=== PATIENT | female | born 1950 | race Caucasian/White ===

== ENCOUNTER → 2019-11-29 14:17 | Outpatient (CLI) | payer OTHER, SELFPAY ==
[2019-11-30 23:34] LABS: COVID19 Sendout Not Detected (Not Detect)
== END ==
PROVIDERS: Visit Provider Physician Assistant
DX: Z01.812 Encounter for preprocedural laboratory examination (principal)
CPT/HCPCS: 87635

== ENCOUNTER 2019-12-02 11:30 | Day surgery (SDC) | payer OTHER, SELFPAY ==
[2019-12-01 13:49] VITALS: BMI 43.7
[2019-12-02] VITALS (16 sets, daily range): BP systolic 101–119; BP diastolic 55–73; PULSE 62–79; RESP 12–20; TEMP 36.2–36.7; O2SAT 90–97; BMI 43.7
--- NOTE | 2019-12-02 | DI.RAD.S_ITS ---
PROCEDURE: XR KNEE LT 1TO2V INDICATIONS: LEFT TOTAL KNEE TECHNIQUE: 2 view(s) of the knee acquired. COMPARISON: [facility], , XR KNEE LT 1TO2V, 12/02/2019, 17:20. FINDINGS: Bones: Patient is status post knee joint arthroplasty. Hardware components are in expected positions. Visualized bony structures are intact. Soft tissues: Overlying postoperative changes are noted. IMPRESSION: Right knee postsurgical changes as above. Dictated by: Heena Ji M.D. on 12/02/2019 at 18:35 Approved by: Heena Ji M.D. on 12/02/2019 at 18:36
--- NOTE | 2019-12-02 | DI.RAD.S_ITS ---
PROCEDURE: XR KNEE LT 1TO2V INDICATIONS: INTRA OP FOREIGN BODY TECHNIQUE: 3 views of the knee were acquired. COMPARISON: None. FINDINGS: Intraoperative fluoroscopic image demonstrates partial visualization of knee arthroplasty. Small curvilinear density is noted along the superior aspect of the patella compartment of the prosthesis seen only in one view. IMPRESSION: Intraoperative fluoroscopy noting curvilinear density along the superior patellar prosthesis. Recommend clinical correlation. Dictated by: Heena Ji M.D. on 12/02/2019 at 17:58 Approved by: Heena Ji M.D. on 12/02/2019 at 17:59
[2019-12-02] MEDS: ACETAMINOPHEN 325 MG TABLET 975 MG PO (12:43)
[2019-12-02] MEDS: LACTATED RINGERS 1,000 ML 42 ML IV ×2 (12:43→15:55)
[2019-12-02] MEDS: PREGABALIN 75 MG CAPSULE PO (12:45)
[2019-12-02] MEDS: VANCOMYCIN 1,000 MG/200 ML PIGGYBACK 200 MG IV (13:09)
--- NOTE | 2019-12-02 14:00 | P.OP_ITS ---
Operative Date/Time/Diagnoses Date of procedure: 12/02/19 Time of procedure: 14:18 Pre-op diagnosis: Left knee OA Post-op diagnosis: same Procedure & Clinicians Procedure: Left total knee arthroplasty Same procedure as scheduled: Yes Indications: The patient has had progressively worsening left knee pain with radiographic changes consistent with arthritis. Non-operative management has failed and the patient has requested total knee replacement. The risks, benefits and alternatives to surgery were discussed with the patient prior to proceeding. Risks discussed included, but were not limited to, failure to relieve pain, stiffness, infection, nerve damage, deep venous thrombosis, pulmonary embolism, stroke, coma, heart attack, permanent paralysis and , as well as the potential need for eventual revision of the prosthetic. Surgeon: Judi Wagner Trimming Assembler: Adela Huggins Anesthesia Type: General and Spinal Operative Notes Findings: Severe left knee osteoarthritis, adequate stability Closure Type: primary Specimen(s): none sent Prosthetic devices, grafts, tissues, transplants, or devices: Wagner and Nephew Odette BCS 2 femur 6, tibia 4, +9 poly, 32 by 7-1/2 mm patella Applied: drain(s) Estimated Blood Loss (mL): 250 Blood products transfused: none Tourniquet time (min): 100 Procedure in detail: The patient was seen in the pre-operative area, where the patient identified the left knee as the operative site and this was marked with my initials. The patient received pre-operative antibiotics, and was taken to the operating room and placed on the operative table in the supine position. After satisfactory anesthesia, a multimedia developer out was performed. The left leg was encircled with a tourniquet about the proximal thigh, and the leg was prepared from the toes to the tourniquet with ChloroPrep in the usual fashion and draped through sterile drapes. The leg was elevated and exsanguinated with Eschmark bandage and the tourniquet inflated to [250] mmHg pressure. The knee was approached through an approximately 18 cm incision centered over the patella and carried into the knee through a medial parapatellar arthrotomy. A portion of the medial and lateral meniscus was resected. Soft tissue was carefully mobilized around the patella the patella was measured with a caliper. Bone was resected from the patella and the patellar height was reconstituted with up an appropriate sized patellar component. A cover was then placed on the patella. A small amount of additional medial and lateral meniscus was resected. The distal femur was cut at 5?. A [+2] cut was used. It looked like an appropriate distal femoral cut and the cut was made without difficulty. An extramedullary guide was used for the tibial cut. 10 mm was resected off the least affected side.The tibia was prepared. The rotation was assessed. The patient was placed in extension residual medial and lateral meniscus as well as any residual bone was carefully resected. 2 mm additional tibia was resected. Hemostasis was achieved especially posteriorly. Additional local was injected into the posterior capsule. The extension gap was assessed and additional releases for gap balancing were performed as necessary. It was checked with the gap administrative judge. The femoral component was trial was placed and the notch was finished. The rotation was assessed and the appropriate size femoral guide was placed on the distal femur and finishing cuts were made. There is no evidence of notching. The anterior, posterior and chamfer cuts were then made. The posterior osteophytes and soft tissues were then removed. The posterior capsule was injected with part of a mixture of 60 ml 0.25% Marcaine mixed with 20 ml Exparel for post operative pain control. The remainder of this mixture was injected into the capsule and subcutaneous tissues during cement curing.l tibial and femoral components were then placed and the knee placed through a range of motion. Range of motion was [0-130], with good stability throughout the range. The trials were then removed, and the tibia was finished. The bone was prepared with pulsatile lavage, and dried with a sponge. Cement was applied and the final prosthetics placed. Excess cement was removed during and after cement curing. A brief Betadine soak was performed. After confirming there was no extruded cement posteriorly, the final tibial insert was placed. The knee was copiously irrigated and the tourniquet deflated. Hemostasis was obtained with the Bovie cautery. A drain was placed and brought out superolaterally. The capsule was closed with interrupted nonabsorbable suture. The subcutaneous layer was closed with barbed sutures, and the skin with a running 3-0 V-Lock suture and skin neli. An Aquacel Ag dressing was applied and the patient was taken to recovery having tolerated the procedure well. Complications: none Post-operative Condition: stable Disposition: Acute Care Plan for aftercare: The patient will be maintained on a standard total knee replacement protocol with weight bearing as tolerated. The patient will receive aspirin and sequential compression devices for DVT prophylaxis. The patient will be discharged home when safe for the home environment.
--- NOTE | 2019-12-02 14:00 | PM.PREOP ---
Pre-operative Note COVID-19 COVID-19 status: Negative Interval Note History & Physical reviewed/Exam performed by Physician: Yes Changes to H&P: No
[2019-12-02] MEDS: CLINDAMYCIN 900 MG/50 ML PIGGYBACK 50 MG IV (14:20)
--- NOTE | 2019-12-02 15:02 | SUR.OPER ---
Supine on padded OR bed. Pillow under head, arms secured on padded armboards <90 degree abduction. Safety belt across torso. Non-operative leg secured with tape over blanket over lower leg. Operative leg secured in DeMayo positioner. Foam padded brace at thigh of operative leg.
[2019-12-02] MEDS: BUPIVACAINE LIPOSOME 266 MG/20 ML VIAL INJ (15:10)
[2019-12-02] MEDS: BUPIVACAINE 0.25% W/ EPI 30 ML VIAL 60 ML INJ (15:10)
[2019-12-02] MEDS: TRANEXAMIC ACID 1,000 MG VIAL 1000 MG INJ (15:11)
[2019-12-02] MEDS: SODIUM CHLORIDE IRRIG SOLUTION 250 ML, POVIDONE-IODINE SPONGE STICKS 1 APPLIC IRR (15:15)
[2019-12-02] MEDS: LACTATED RINGERS 1,000 ML 100 ML IV (19:47)
[2019-12-02] MEDS: ACETAMINOPHEN 325 MG TABLET 650 MG PO (21:38)
[2019-12-02] MEDS: ASPIRIN EC 81 MG TABLET PO (21:39)
[2019-12-02] MEDS: IBUPROFEN 400 MG TABLET PO (21:39)
[2019-12-02] MEDS: TRAZODONE 100 MG TABLET PO (21:39)
[2019-12-03 00:40] VITALS: BP 104/63; PULSE 74; RESP 18; TEMP 36.3; O2SAT 94
[2019-12-03] MEDS: IBUPROFEN 400 MG TABLET PO ×5 (00:51→17:30)
[2019-12-03] MEDS: VANCOMYCIN 1,000 MG/200 ML PIGGYBACK 200 MG IV (00:51)
[2019-12-03 05:45] VITALS: BP 115/56; PULSE 68; RESP 18; TEMP 36.1; O2SAT 96
[2019-12-03 06:10] LABS: Hematocrit 38.6 % (36-46); Hemoglobin 12.6 g/dL (12.0-16.0)
[2019-12-03 09:00] VITALS: BP 102/52; PULSE 67; RESP 18; TEMP 36.2; O2SAT 95
[2019-12-03] MEDS: CHOLECALCIFEROL (VITAMIN D3) 5,000 UNIT TABLET 5000 UNIT PO (09:58)
[2019-12-03] MEDS: ASPIRIN EC 81 MG TABLET PO (09:58)
[2019-12-03] MEDS: ATORVASTATIN 20 MG TABLET PO (09:58)
[2019-12-03] MEDS: ACETAMINOPHEN 325 MG TABLET 650 MG PO ×2 (09:58→14:02)
[2019-12-03] MEDS: DULOXETINE 30 MG CAPSULE 60 MG PO (09:59)
[2019-12-03] MEDS: DOCUSATE 100 MG CAPSULE PO (09:59)
[2019-12-03] MEDS: OXYCODONE IR 5 MG TABLET PO ×2 (10:02→15:01)
[2019-12-03] MEDS: SODIUM CHLORIDE 0.9% FLUSH 10 ML IV (10:04)
--- NOTE | 2019-12-03 11:37 | PC.NURSE ---
Hemovac drain d/c'd per MD order at approx. 1137. Pt tollerated well. Approx 50mls out serosanguinous drainage.
--- NOTE | 2019-12-03 12:00 | PT.IIE ---
Current Diagnoses Unilateral primary osteoarthritis, right knee (12/02/19) Surgery Performed Operation Date: 12/02/19 13:45 Actual Procedures p Total Knee Arthroplasty(Left) - Judi Wagner MD Surgical History (Last Updated 12/01/19 @ 14:21 by Ivory Baker RN) H/O total hysterectomy with bilateral salpingo-oophorectomy (BSO) (Acute) History of bladder surgery (Acute) History of lumpectomy of right breast (Acute) History of surgery (Acute ~2016) Hx of appendectomy (Acute ~1978) Hx of bariatric surgery (Acute ~2009) Hx of excision of dermoid cyst (Acute) Hx of lithotripsy (Acute) Medical History (Last Updated 12/01/19 @ 14:29 by Ivory Baker RN) Arthritis (Acute) Cholesteatoma (Acute) Decreased sensation (Acute) Depression (Acute) DJD (degenerative joint disease) (Acute) Extra-mammary Paget disease (Acute ~2016) Heartburn (Acute) Hepatitis A (Acute 196) HLD (hyperlipidemia) (Acute) Hypotension (Acute) Kidney stones (Acute) Lactose intolerance (Acute) Sleep apnea (Acute) Physical Therapy Inpatient Evaluation/Re-Eval M1 PT/OT-IP Prior Functional Status Start: 12/03/19 08:43 Freq: NEEDED Status: Active Protocol: Document 12/03/19 11:31 AW (Rec: 12/03/19 12:00 AW [id number]) Medical Review Prior Functional Status Medical History Reviewed Yes Communication WNL Mobility and Gait Pt is modified IND with use of SPC on uneven terrain and 4WW for longer distance ambulation. She tends not to use an assistive device at home. She denies any falls in the past year. Activities of Daily Living and IADL's IND including driving. Social History Household Members spouse Living Arrangements House Number of Floors (Floors) 3 or More Floors Number of Stairs To Enter/Railing? 1 step on to the front porch without railing. Once inside, pt climbs three stairs with left rail ascending to a landing. She then climbs another 13 stairs with L rail to her bedroom level. Pt had not planned to stay on the entry level assistant manager but is willing to consider sleeping in a recliner on the main level if unable to safely navigate stairs. Home Environment High Toilet,Walk in Shower, Built-In Shower Seat Home Equipment Four Wheel Walker,Straight Cane,Hand Held Shower,Supervisor [employer]ating Employment Status Retired Additional Social History Comment Pt is retired from [employer]. She lives with her spouse, Ty, who is retired. He will be available and able to assist at discharge. M2 PT-IP Current Condition Start: 12/03/19 08:43 Freq: NEEDED Status: Active Protocol: Document 12/03/19 11:31 AW (Rec: 12/03/19 12:00 AW [id number]) Physical Therapy Current Condition Current Condition Evaluation Date 12/03/19 Treatment Diagnosis L TKA, difficulty in walking` Onset Date 12/02/19 Weight Bearing Status Weight Bearing Status Weight Bear as Tolerated M3 PT-IP Subjective Start: 12/03/19 08:43 Freq: NEEDED Status: Active Protocol: Document 12/03/19 11:31 AW (Rec: 12/03/19 12:00 AW [id number]) Subjective Physical Therapy Visit Type Type Initial Evaluation Visit Start Time 10:40 Visit Stop Time 11:13 Total Visit Minutes 33 Physical Therapy Visit Comments Patient Comments Pt requests to use the [facility] Patient Goals Pt hopes to return home at discharge with her spouse assisting Therapy Pain Assessment Pain When Pain Assessed During Mobility Pain Present Pain Present Pain Reported Location Left Knee Intensity 3 Pain Management Techniques Apply Cold,Timing of Activity with Medications M4 PT-IP Mobility and Gait Start: 12/03/19 08:43 Freq: NEEDED Status: Active Protocol: Document 12/03/19 11:31 AW (Rec: 12/03/19 12:00 AW [id number]) PT-Bed Mobility Assessment Supine to Sit Supine to Sit Standby Assistance Scooting Scooting to Edge of Bed Standby Assistance PT-Transfer Assessment Sit to and From Stand Sit to and from Stand Contact Guard Assistance,1 Person Assistance,Use of Upper Extremities Equipment Transfer Assistive Device Gait Belt,Front Wheeled Walker Transfers Transfer Destination Chair,Bedside Commode Transfer Technique pt ambulated with FWW Transfer Ability Level of Assist Minimal Assistance,1 Person Assistance Comments Mobility Comments With HOB flat, pt completed supine to sit SBA. She was able to sit EOB with and without UE support. She stood from the bed with cues to use arms on the bed to push off. She transferred to the [facility] CGA using FWW. After voiding, she stood to complete her own pericare and to manage her own briefs. She then ambulated in the hallways, completed stair training, and returned to the room to transfer to the chair min assist x 1 due to poor eccentric control. She was positioned with call light and all needs in reach, fresh ice packs applied. She was left with RN attending. Gait Assessment Gait Gait Assistance Required: Contact Guard Assist Distance (Feet) 75 Able to Maintain Weight Bearing Status Yes During Gait Assistive Devices Assistive Device Gait Belt,Front Wheeled Walker Gait Deviations General Gait Pattern Antalgic,Decreased Stride Length,Decreased Feet Clearance,Flexed Trunk,Step-to Gait Factors Limiting Gait Function Factors Limiting Gait Function Decreased Activity Tolerance, Decreased Sensation,Decreased Strength,Limited Range of Motion,Pain,Poor Balance Comments Gait Comments Pt ambulated [address] to and from the stairs with FWW CGA. She complained of RLE weakness during ambulation but did not require cues for quad activation. She moved slowly but deliberately with good attention to safety. Stair Climbing Assessment Evaluation Level of Assist On Stairs Minimal Assistance,1 Person Assistance Devices Stair Climbing Assistive Devices Left Railing Technique/Endurance Stair Climbing Direction Ascend and Descend Stair Climbing Technique Step to Step Number of Steps Climbed 3 Query Text: Stair Climbing Set # Repetitions (reps) 1 Comments Stair Climbing Comments Pt completed stairs with left hand rail, right SENIOR TREASURY CONSULTANT, min A x 1 due to unsteadiness. Pt will require further stair training including caregiver prior to discharge. PT-Balance Assessment Sitting Balance and Reactions Static Sitting Balance Ability Normal Dynamic Sitting Balance Ability Normal Standing Balance and Reactions Static Standing Balance Ability Fair Dynamic Standing Balance Ability Fair Device Used FWW M5 PT-IP Objective Assessments Start: 12/03/19 08:43 Freq: NEEDED Status: Active Protocol: Document 12/03/19 11:31 AW (Rec: 12/03/19 12:00 AW [id number]) Orientation Orientation/Cognition Level of Alertness Alert Orientation Name,Day of Week,Place, Situation Language Function Ability No Deficits Noted Safety Awareness Understands Safety Issues Memory Description No Deficits Noted Gross Range of Motion Lower Extremity ROM Assessment Left Impaired Strength Lower Extremity Strength Assessment Bilaterally Impaired Hip 3+/5 Knee R 4/5; L 3/5 Ankle 4/5 Coordination Assessment Gross Coordination Gross Coordination WNL Sensation Assessment Sensation Gross Sensation WNL Muscle Tone Muscle Tone WNL Yes M6 PT-IP Treatment Start: 12/03/19 08:43 Freq: NEEDED Status: Active Protocol: Document 12/03/19 11:31 AW (Rec: 12/03/19 12:00 AW [id number]) Physical Therapy Treatment Exercises Exercises Ankle Pumps,Quad Sets Education Education Provided Precautions,Weight Bearing Status,Post-Op Packet,Safety Other Treatments Other Treatment Performed Provided education on role of PT, plan of care, weightbearing status, and safe use of FWW. M7 PT-IP Assessment and Plan Start: 12/03/19 08:43 Freq: NEEDED Status: Active Protocol: Document 12/03/19 11:31 AW (Rec: 12/03/19 12:00 AW [id number]) PT Summary Assessment and Plan Potential Rehabilitation Potential Good Status of Condition at Evaluation Evolving Summary Impairments Pain,ROM,Strength,Balance,Bed Mobility,Transfers,Gait, Activity Tolerance Assessment Summary Trista is a 68 yo woman seen for PT evaluation on POD1 following L TKA. She is modified independent at baseline with use of SPC and 4WW. Her obesity and knee pain have been limiting her mobility and are contributing to low activity tolerance at this time. Before [facility] isolation, she was exercising in the pool but has been unable to do so for several months. On evaluation, pt required min assist for standing, transfers, and stairs; CGA for ambulation with FWW. Pt has many stairs at home and has a goal to be able to climb 16 stairs to her bedroom at discharge. However , she is willing to consider staying on the main level if needed. Pt will participate in further stair training with her this PM. PT anticipates pt will be safe to discharge home with spouse assist and outpatient PT once medically cleared. PT will continue to assess. Goals Bed Mobility Goal Independent Transfer Goal Standby Assistance,Front Wheeled Walker Gait Goal Standby Assistance,Front Wheel Walker Gait Distance 100 Other Goals - up/down 16 steps with left hand rail and right SENIOR TREASURY CONSULTANT CGA Days to Meet Goals 3 Frequency of Treatment Frequency Of Treatment Twice a Day Treatment Plan Physical Therapy Treatment Plan Bed Mobility Training,Transfer Training,Gait Training, Therapeutic Exercise,Balance Retraining,Post Op Education, Discharge Planning,Hot or Cold Pack Other Recommendations and Next Treatment caregiver training arranged Focus with pt's for 1500- 1600 time frame today; stairs Recommendations To Nursing Amount of Assist Needed 1 Person Assist Discharge Recommendations PT Discharge Recommendations Home with Assistance, Outpatient PT Equipment Needed for Home Before FWW Discharge Transportation Needs at Discharge Private Vehicle
[2019-12-03 15:30] VITALS: BP 97/53; PULSE 66; RESP 16; TEMP 36.7; O2SAT 94
--- NOTE | 2019-12-03 15:47 | CM.DANOTE ---
Patient is a 68 year old female who was admitted on 12/02/19 for Left TKA. Pt has [facility] for insurance and her PCP is Dr. Bay. EMR was reviewed. Per Ortho MD, pt tolerated procedure well today and may be able to d/c home later today or tomorrow pending PT. Per PT, pt ambulated well but has 16 stairs in her house and completed some stairs today and spouse to be bedside around 1500 to complete CG training and more stairs. SW placed requested order for FWW for PT. SW met bedside with pt and explained role and pt lives in [place] with her spouse and is independent at baseline with ADL's. Pt denies any hx of HH or SNF and she is hopeful to d/c home this evening after CG training but realizes that 16 stairs will be a lot to manage once she gets home and considering staying on the first level for a little while. Plan: SW to follow for likely pt d/c home with spouse assist and outpt PT after further stairs and CG training with spouse and PT. 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 Yes Advance Directives on File No History Provided By Patient,Medical Record Prior Living Arrangements House Household Members spouse Type of transporation used prior to Drives own vehicle admit Independent with ADL's Yes Is patient alert and oriented? Yes Caregiver for Another No Patient/Family Preference OP PT Therapy Barriers to Discharge No Discharge Plan Home Transportation Arrangement Spouse will be able to provide transport Referrals Initiated None needed Review Status In Process Please Provide Date Initial DC 12/03/19 Assessment Was Performed Next Review Type Continued Stay Review Pre-Anesthesia Assessment Start: 12/01/19 13:49 Freq: Status: Active Protocol: Document 12/01/19 13:49 CAB (Rec: 12/01/19 14:38 CAB [id number]) Pre-Anesthesia Assessment Patient Information Reviewed Via Phone Assessment Assessment Completed With Patient H&P Completed Within 30 Days Yes Diagnostic Results BMP/CMP,CBC,Urinalysis Comment Outside labs scanned in, COVID screen @ [facility] 11/29/19 Negative Primary Care Provider Lissy Bay Seen Specialist in Last 12 Months Yes Specialist Seen House Mover,Orthopedist Primary Language Vietnamese Plate Conditioner Required No Height 160.02 cm Weight 112.037 kg Body Mass Index (BMI) 43.7 Hearing Ability Normal Visual Impairment No Limitations Visual Assist None Dentition Type Teeth, Natural Present,Teeth, Broken Barriers to Learning None Other Aids Yes: CPAP Hx Anesthesia Reactions Yes: No Benzodiazepines Hx Family Anesthesia Reaction Yes: Mother had extreme hallucinations, breakdown Hx Malignant Hyperthermia No Hx Blood Transfusions No Comment Front upper tooth cracked Anesthesia Review Requested No alcohol intake current alcohol intake frequency holidays/special occasions only Smoking Status Former smoker Tobacco type cigarettes how long ago did patient quit smoking Quit 1975 Substance Use Type does not use Pain Present Pain Reported Musculoskeletal Symptoms Abnormal Gait,Back Pain, Difficulty Walking,Joint Pain, Muscle Cramps,Numbness, Tingling History of Falling (Recent or History of No ) Patient is completely paralyzed or No completely immobile Prosthesis or Orthotic Device Cane,Front Wheel Walker Mental Status Oriented to own ability Is patient on oxygen? No Does patient have BEAR/SOB No Hx Sleep Apnea Yes CPAP/BIPAP use prescribed and used routinely Will Bring CPAP/BIPAP DOS Yes Currently Taking a Beta Tito No Can You Climb a Flight of Stairs Without Yes SOB Hx Chest Pain No Hx SOB No Hx Syncope or Dizziness No Anti-Coagulant Therapy No Has a Side Hemmer No Cardiac Testing No Hx Pacemaker/ICD No Pacemaker Rep Required? No Cardiac Clearance Received Not Applicable Diet Type At Home Regular,Low Carb dysphagia No Gastrointestinal Symptoms Diarrhea,Reflux Bladder Pattern Incontinent Urinary Catheter Present No Hx Urinary Self Catheterization No Diabetes Pre-diabetes HgbA1C 6.0 Date 11/26/19 Patient No Lactating No Hx Drug Resistant Organism No Presence of External or Internal Medical Yes: CPAP, lap band Devices Have you had any close contact with No someone diagnosed with COVID-19? Marital Status Lives With spouse Prior Living Arrangements House Number of Floors (Floors) 3 or More Floors Support System Spouse Does the Patient Have Assistance After Yes Surgery Patient Discharge Plan Description Return Home Comment Pt advised overnight length of stay per surgeon Feels Safe in Current Environment Yes Been Physically Hurt or Threatened By a No Person in Current Environment Do you have thoughts of harming yourself None or others? Are you currently considering suicide? No Do you have a plan to hurt yourself or No Plan others? Do You Have Any Spiritual Beliefs That No May Affect Your HC Choices? Do You Have Any Cultural Practices That No May Affect Your HC Choices? Who Can We Speak to About Patient's Care Family, friends Identifying Code for Release of Patient Declines to issue Information Health Care Proxy/Next of Kin Julien Ed () Health Care Proxy Emergency Contact Name Julien Ed () Alex (son ) Emergency Contact Phone Number Ed: [phone] Alex: [phone] Advance Directives? Yes Advance Directives on File No Requested Patient Bring Advanced Yes Directives DOS Power of Health Education Aide Yes Power of Health Education Aide Name Julien Ed () Power of Health Education Aide PAC Instructions Bring CPAP/BIPAP,Durable medical equipment,Medications to take/avoid,Nasal antibiotic ,No ETOH/petroleum product on skin DOS,NPO,Pre-surgical wash ,Sensory aids,Sturdy shoes/ comfortable clothes,Do not bring valuables and remove jewelry
--- NOTE | 2019-12-03 18:11 | PT.IPTN ---
Current Diagnoses Unilateral primary osteoarthritis, right knee (12/02/19) Surgery Performed Operation Date: 12/02/19 13:45 Actual Procedures p Total Knee Arthroplasty(Left) - Judi Wagner MD Physical Therapy Treatment Note M2 PT-IP Current Condition Start: 12/03/19 08:43 Freq: NEEDED Status: Discharge Protocol: Document 12/03/19 11:31 AW (Rec: 12/03/19 12:00 AW [id number]) Physical Therapy Current Condition Current Condition Evaluation Date 12/03/19 Treatment Diagnosis L TKA, difficulty in walking` Onset Date 12/02/19 Weight Bearing Status Weight Bearing Status Weight Bear as Tolerated M3 PT-IP Subjective Start: 12/03/19 08:43 Freq: NEEDED Status: Discharge Protocol: Document 12/03/19 18:03 HH (Rec: 12/03/19 18:11 HH [email or web address]) Subjective Physical Therapy Visit Type Type Treatment Note Visit Start Time 16:05 Visit Stop Time 16:26 Total Visit Minutes 21 Notes Pt's attended CG training session. Number of TELECOMMUNICATIONS TECHNICIAN Visits 0 Physical Therapy Visit Comments Patient Comments Im ready for stairs. Therapy Pain Assessment Pain When Pain Assessed During Mobility Pain Present Pain Present Pain Reported Location Left Knee Intensity 3 Pain Management Techniques Apply Cold,Timing of Activity with Medications M4 PT-IP Mobility and Gait Start: 12/03/19 08:43 Freq: NEEDED Status: Discharge Protocol: Document 12/03/19 18:03 HH (Rec: 12/03/19 18:11 HH [email or web address]) PT-Transfer Assessment Sit to and From Stand Sit to and from Stand Standby Assistance,Use of Upper Extremities Equipment Transfer Assistive Device Gait Belt,Front Wheeled Walker Transfers Transfer Destination Chair Transfer Technique pt ambulated with FWW Transfer Ability Level of Assist Standby Assistance,Contact Guard Assistance,Use of Upper Extremities Comments Mobility Comments Pt was in chair upon PT arrival. at bedside. She then stood up with SBA/CGA with FWW with proper hand placements. She then began to amb with step to pattern but antalgic gait noted. She was steady and able to walk to staircase for approx 65 ft. After completing stair training, pt was able to walk back to her room chair and safely transfer herself with proper hand placements. Pt stated I feel a lot better than this morning and confident to go home. Pt denied increased discomfort. Call ligth placed within reach and notified HALIMA Yadav. Gait Assessment Gait Gait Assistance Required: Standby Assistance,Contact Guard Assist Distance (Feet) 125 Able to Maintain Weight Bearing Status Yes During Gait Assistive Devices Assistive Device Gait Belt,Front Wheeled Walker Gait Deviations General Gait Pattern Antalgic,Decreased Stride Length,Decreased Feet Clearance,Flexed Trunk,Step-to Gait Factors Limiting Gait Function Factors Limiting Gait Function Decreased Activity Tolerance, Decreased Sensation,Decreased Strength,Limited Range of Motion,Pain,Poor Balance Comments Gait Comments see mobility comments. Stair Climbing Assessment Evaluation Level of Assist On Stairs Minimal Assistance,1 Person Assistance Devices Stair Climbing Assistive Devices Left Railing Technique/Endurance Stair Climbing Direction Ascend and Descend Stair Climbing Technique Step to Step Number of Steps Climbed 3 Stair Climbing Set # Repetitions (reps) 2 Comments Stair Climbing Comments pt's Ed provided PROGRAM COORDINATOR [employer] on R and pt was able to complete stairs for 2 sets safely. PT-Balance Assessment Sitting Balance and Reactions Static Sitting Balance Ability Normal Dynamic Sitting Balance Ability Normal Standing Balance and Reactions Static Standing Balance Ability Good Dynamic Standing Balance Ability Fair Device Used FWW M5 PT-IP Objective Assessments Start: 12/03/19 08:43 Freq: NEEDED Status: Discharge Protocol: Document 12/03/19 11:31 AW (Rec: 12/03/19 12:00 AW [id number]) Orientation Orientation/Cognition Level of Alertness Alert Orientation Name,Day of Week,Place, Situation Language Function Ability No Deficits Noted Safety Awareness Understands Safety Issues Memory Description No Deficits Noted Gross Range of Motion Lower Extremity ROM Assessment Left Impaired Strength Lower Extremity Strength Assessment Bilaterally Impaired Hip 3+/5 Knee R 4/5; L 3/5 Ankle 4/5 Coordination Assessment Gross Coordination Gross Coordination WNL Sensation Assessment Sensation Gross Sensation WNL Muscle Tone Muscle Tone WNL Yes M6 PT-IP Treatment Start: 12/03/19 08:43 Freq: NEEDED Status: Discharge Protocol: Document 12/03/19 18:11 (Rec: 12/03/19 18:11 [email or web address]) Physical Therapy Treatment Equipment Issued Equipment Type and Company dispensed FWW for home use. Pt is not steady with the use of 4WW M7 PT-IP Assessment and Plan Start: 12/03/19 08:43 Freq: NEEDED Status: Discharge Protocol: Document 12/03/19 18:03 (Rec: 12/03/19 18:11 [email or web address]) PT Summary Assessment and Plan Potential Rehabilitation Potential Good Status of Condition at Evaluation Evolving Summary Impairments Pain,ROM,Strength,Balance,Bed Mobility,Transfers,Gait, Activity Tolerance Progress Towards Goals Safe For Discharge Assessment Summary Pt shows improved amb distance and less assistance needed for mobility. attended CG training session and completed stair climbing by providing [employer] CO[employer] on pt's R side safely. Dispensed a FWW to pt at the end of session. Pt is safe to d/c home with assistance as needed. Frequency of Treatment Frequency Of Treatment Discharge Discharge Recommendations PT Discharge Recommendations Home with Assistance, Outpatient PT Equipment Needed for Home Before FWW Discharge Transportation Needs at Discharge Private Vehicle
--- NOTE | 2019-12-03 20:16 | PM.PN.1 ---
Subjective Subjective Date Patient Seen: 12/03/19 Time Patient Seen: 07:54 Interval history: Stacy notes that she had a good night overall. She does have some moderate knee pain. She did well with physical therapy today and we got her up ambulating without difficulty. Exam Vital Signs (past 8 hours): - 12/03/19 15:30 Temperature 98.0 F Pulse Rate 66 Respiratory Rate 16 Blood Pressure 97/53 L Pulse Oximetry 94 Oxygen Delivery Method CPAP Oxygen Flow Rate 0 Narrative Exam Narrative: She is alert she is oriented her abdomen soft and benign, her calfs are soft bilaterally, her dressing is dry and intact and she can do an active straight leg raise without difficulty. Objective Labs Result Diagrams: 12/03/19 05:40 Labs: Laboratory Results - last 24 hr 12/03/19 05:40 Hgb 12.6 Hct 38.6 Assessment & Plan Assessment & Plan narrative: Doing well status post a left total hip knee arthroplasty. She has done well without problems and the plan is to discharge her to home with outpatient physical therapy.
== END 2019-12-03 18:06 | disposition home or self-care (01) ==
LOC: OR 12:22 → AC 18:47
PROVIDERS: PCP Social Worker Clinical; Referring Provider Orthopaedic Surgery; Visit Provider Orthopaedic Surgery
PROC: 0SRD0JZ Replacement of Left Knee Joint with Synthetic Substitute, Open Approach (ICD-10-PCS; CPT 27447; principal; 2019-12-02 13:45)
DX: G47.33 Obstructive sleep apnea (adult) (pediatric) (principal); E66.9 Obesity, unspecified; E78.5 Hyperlipidemia, unspecified; Z68.41 Body mass index [BMI] 40.0-44.9, adult; M17.12 Unilateral primary osteoarthritis, left knee
CPT/HCPCS: 27447; 36415; 73560; 76000; 85014; 85018; 97116; 97161; 97530; C1776; C9290; J1100; J2274; J2405; J2704; J3010

== ENCOUNTER → 2020-03-13 13:17 | Outpatient (CLI) | payer OTHER, SELFPAY ==
[2019-12-02 19:04] VITALS: BMI 43.7
[2020-03-15 02:25] LABS: COVID19 Sendout Not Detected (Not Detect)
== END ==
PROVIDERS: PCP Social Worker Clinical; Visit Provider Nurse Practitioner
DX: Z11.59 Encounter for screening for other viral diseases (principal)
CPT/HCPCS: 87635

== ENCOUNTER 2020-03-16 08:43 | Day surgery (SDC) | payer OTHER, SELFPAY ==
[2019-12-02 19:04] VITALS: BMI 43.7
[2020-03-09 12:56] VITALS: BMI 43.7
[2020-03-16] VITALS (13 sets, daily range): BP systolic 103–135; BP diastolic 50–89; PULSE 79–105; RESP 10–18; TEMP 36.2–36.9; O2SAT 92–98; BMI 45.1
--- NOTE | 2020-03-16 06:00 | DI.RAD.S_ITS ---
PROCEDURE: XR KNEE RT 1TO2V INDICATIONS: postop TECHNIQUE: 2 view(s) of the knee acquired. COMPARISON: [facility], CR, XR KNEE LT 1TO2V, 12/03/2019, 5:31. [facility], CR, XR KNEE LT 1TO2V, 12/02/2019, 17:20. FINDINGS: Bones: Patient is status post knee joint arthroplasty. Hardware components are in expected positions. Visualized bony structures are intact. Soft tissues: Overlying postoperative changes are noted. IMPRESSION: Normal alignment after right total knee arthroplasty. Dictated by: Remi Esquivel M.D. on 03/16/2020 at 15:40 Approved by: Remi Esquivel M.D. on 03/16/2020 at 15:40
[2020-03-16] MEDS: PREGABALIN 75 MG CAPSULE PO (09:26)
[2020-03-16] MEDS: ACETAMINOPHEN 325 MG TABLET 975 MG PO (09:26)
[2020-03-16] MEDS: LACTATED RINGERS 1,000 ML 42 ML IV ×2 (09:27→14:24)
[2020-03-16] MEDS: VANCOMYCIN 1,000 MG/200 ML PIGGYBACK 200 MG IV (09:49)
--- NOTE | 2020-03-16 10:23 | P.OP_ITS ---
Operative Date/Time/Diagnoses Date of procedure: 03/16/20 Time of procedure: 10:59 Pre-op diagnosis: right knee OA Post-op diagnosis: same Procedure & Clinicians Procedure: Right total knee arthroplasty Same procedure as scheduled: Yes Indications: The patient has had progressively worsening right knee pain with radiographic changes consistent with arthritis. Non-operative management has failed and the patient has requested total knee replacement. The risks, benefits and alternatives to surgery were discussed with the patient prior to proceeding. Risks discussed included, but were not limited to, failure to relieve pain, stiffness, infection, nerve damage, deep venous thrombosis, pulmonary embolism, stroke, coma, heart attack, permanent paralysis and , as well as the potential need for eventual revision of the prosthetic. Surgeon: Judi Wagner Door To Door Selling Agent: Elie Del Real Anesthesia Type: General and Spinal Operative Notes Findings: Severe right knee osteoarthritis, good stability, adequate bone Closure Type: primary Specimen(s): none sent Prosthetic devices, grafts, tissues, transplants, or devices: [facility] BCS 2 size 6 femur, size 4 tibia, +9 poly, 32 x 7.5 mm patella Applied: drain(s) Estimated Blood Loss (mL): 250 Blood products transfused: none Tourniquet time (min): 85 Procedure in detail: The patient was seen in the pre-operative area, where the patient identified the right knee as the operative site and this was marked with my initials. The patient received pre-operative antibiotics, and was taken to the operating room and placed on the operative table in the supine position. After satisfactory anesthesia, a embossing machine operator out was performed. The right leg was encircled with a tourniquet about the proximal thigh, and the leg was prepared from the toes to the tourniquet with ChloroPrep in the usual fashion and draped through sterile drapes. The leg was elevated and exsanguinated with Eschmark bandage and the tourniquet inflated to 250 mmHg pressure. The knee was approached through an approximately 18 cm incision centered over the patella and carried into the knee through a medial parapatellar arthrotomy. A portion of the medial and lateral meniscus was resected. Soft tissue was carefully mobilized around the patella the patella was measured with a caliper. Bone was resected from the patella and the patellar height was reconstituted with an appropriate sized patellar component. A cover was then placed on the patella. A small amount of additional medial and lateral meniscus was resected. The distal femur was cut at 5?. A [+2] cut was used. It looked like an appropriate distal femoral cut and the cut was made without difficulty. An extramedullary guide was used for the tibial cut. 10 mm was resected off the least affected side.The tibia was prepared. The rotation was assessed. The patient was placed in extension residual medial and lateral meniscus as well as any residual bone was carefully resected. 2mm additional tibia was resected. Hemostasis was achieved especially posteriorly. Additional local was injected into the posterior capsule. The extension gap was assessed and additional releases for gap balancing were performed as necessary. It was checked with the gap senior service aide. The femoral component was trial was placed and the notch was finished. The rotation was assessed and the appropriate size femoral guide was placed on the distal femur and finishing cuts were made. There is no evidence of notching. The anterior, posterior and chamfer cuts were then made. The poste rior osteophytes and soft tissues were then removed. The posterior capsule was injected with part of a mixture of 60 ml 0.25% Marcaine mixed with 20 ml Exparel for post operative pain control. The remainder of this mixture was injected into the capsule and subcutaneous tissues during cement curing. The tibial and femoral components were then placed and the knee placed through a range of motion. Range of motion was [0-125], with good stability throughout the range. The trials were then removed, and the tibia was finished. The bone was prepared with pulsatile lavage, and dried with a sponge. Cement was applied and the final prosthetics placed. Excess cement was removed during and after cement curing. A brief Betadine soak was performed. After confirming there was no extruded cement posteriorly, the final tibial insert was placed. The knee was copiously irrigated and the tourniquet deflated. Hemostasis was obtained with the Bovie cautery. A drain was placed and brought out superolaterally. The capsule was closed with interrupted nonabsorbable suture. The subcutaneous layer was closed with barbed sutures, and the skin with a running 3-0 V-Lock suture and skin neli. An Tawnya dressing was applied and the patient was taken to recovery having tolerated the procedure well. Complications: none Post-operative Condition: stable Disposition: Acute Care Plan for aftercare: The patient will be maintained on a standard total knee replacement protocol with weight bearing as tolerated. The patient will receive aspirin and sequential compression devices for DVT prophylaxis. The patient will be discharged home when safe for the home environment.
--- NOTE | 2020-03-16 10:23 | PM.PREOP ---
Pre-operative Note COVID-19 COVID-19 status: Negative Interval Note History & Physical reviewed/Exam performed by Physician: Yes Changes to H&P: No
[2020-03-16] MEDS: CLINDAMYCIN 900 MG/50 ML PIGGYBACK 50 MG IV ×2 (11:01→18:25)
[2020-03-16] MEDS: TRANEXAMIC ACID 1,000 MG VIAL 1000 MG INJ ×2 (11:31→13:41)
--- NOTE | 2020-03-16 11:41 | SUR.OPER ---
Supine on padded OR bed. Pillow under head, arms secured on padded armboards <90 degree abduction. Safety belt across torso. Non-operative leg secured with tape over blanket over lower leg. Operative leg secured in DeMayo/Thomas positioner. Foam padded brace at thigh of operative leg.
[2020-03-16] MEDS: BUPIVACAINE 0.25% W/ EPI 30 ML VIAL 60 ML INJ (11:44)
[2020-03-16] MEDS: BUPIVACAINE LIPOSOME 266 MG/20 ML VIAL INJ (11:45)
[2020-03-16] MEDS: SODIUM CHLORIDE IRRIG SOLUTION 250 ML, POVIDONE-IODINE SPONGE STICKS 1 APPLIC IRR (11:46)
[2020-03-16] MEDS: LACTATED RINGERS 1,000 ML 100 ML IV (14:43)
--- NOTE | 2020-03-16 15:29 | PT-IP ANOTE ---
Received PT orders and reviewed chart. Pt is familiar to this PT as she underwent L TKA at this hospital in November. Pt was too groggy to meaningfully participate with PT. Will follow up morning of 03/17/20.
[2020-03-16] MEDS: IBUPROFEN 400 MG TABLET PO ×2 (16:53→21:32)
[2020-03-16] MEDS: OXYCODONE IR 5 MG TABLET PO ×2 (18:25→21:32)
[2020-03-16] MEDS: TRAZODONE 100 MG TABLET PO (21:31)
[2020-03-16] MEDS: ACETAMINOPHEN 325 MG TABLET 650 MG PO (21:31)
[2020-03-16] MEDS: DOCUSATE 100 MG CAPSULE PO (21:32)
[2020-03-16] MEDS: ASPIRIN EC 81 MG TABLET PO (21:39)
--- NOTE | 2020-03-16 23:37 | PC.NURSE ---
Post-op notes: Trista resting in bed, VS stable tonight. Reports pain to knee 11/20, medicated with oxycodone and scheduled tylenol & ibuprofen. [place] through shift she c/o her drsg was too tight, and feels like it is cutting off my circulation. Eric wrap taken down. BRISA CDI, green light blinking on box. Hemovac present, compressed with small amt of sero-sang in bulb. After a 2 minute break from ERIC wrap I re-wrapped her leg. She stated that her leg felt a bit better after ERIC loosened. Ice packs in place to knee. Pt transferred via 1 person assist to BSC, voiding with no reported difficulty. [employer] reported patient said she felt a bit dizzy last time she transferred to BSC and back to bed. Face pale, denies further dizziness after rest period. Fall precautions in place tonight, alarm active for safety. [employer]ml[employer] Zip Closure information printed and given to patient per her request for reading material about the closure.
[2020-03-17] VITALS: BP 106/66; PULSE 69; RESP 16; TEMP 36.7; O2SAT 91
[2020-03-17] MEDS: IBUPROFEN 400 MG TABLET PO ×3 (00:53→09:22)
[2020-03-17] MEDS: CLINDAMYCIN 900 MG/50 ML PIGGYBACK 50 MG IV (02:29)
[2020-03-17 06:58] VITALS: BP 110/68; PULSE 61; RESP 18; TEMP 36.1; O2SAT 92
[2020-03-17 07:07] LABS: Hematocrit 37.4 % (36-46); Hemoglobin 12.1 g/dL (12.0-16.0)
--- NOTE | 2020-03-17 07:42 | PM.PN.1 ---
Subjective Subjective Date Patient Seen: 03/17/20 Time Patient Seen: 07:42 Interval history: Did well overnight. Adequate pain control. She has been out of bed several times to void. Exam Vital Signs (past 8 hours): - 03/17/20 00:00 03/17/20 06:58 Temperature 98.1 F 97.0 F L Pulse Rate 69 61 Respiratory Rate 16 18 Blood Pressure 106/66 110/68 Pulse Oximetry 91 92 Oxygen Delivery Method Room Air,CPAP Oxygen Flow Rate 0 Narrative Exam Narrative: alert and oriented, calves soft bilaterally, dressing intact, adequate SLR Objective Labs Result Diagrams: 03/17/20 06:40 Labs: Laboratory Results - last 24 hr 03/17/20 06:40 Hgb 12.1 Hct 37.4 Assessment & Plan Assessment & Plan narrative: Doing well postoperatively. Ok to discharge to home when safe and cleared by PT. Aspirin for DVT prophylaxis.
[2020-03-17] MEDS: polyethylene glycoL 3350 17 GM POWD.PACK PO (09:21)
[2020-03-17] MEDS: ACETAMINOPHEN 325 MG TABLET 650 MG PO (09:22)
[2020-03-17] MEDS: DOCUSATE 100 MG CAPSULE PO (09:22)
[2020-03-17] MEDS: DULOXETINE 30 MG CAPSULE 60 MG PO (09:22)
[2020-03-17] MEDS: ASPIRIN EC 81 MG TABLET PO (09:22)
[2020-03-17] MEDS: ATORVASTATIN 20 MG TABLET PO (09:22)
[2020-03-17 09:40] VITALS: BP 107/70; PULSE 73; RESP 15; TEMP 36.6; O2SAT 93
[2020-03-17] MEDS: OXYCODONE IR 5 MG TABLET PO (11:03)
--- NOTE | 2020-03-17 13:25 | PT.IIE ---
Current Diagnoses Unilateral primary osteoarthritis, right knee (03/16/20) Surgery Performed Operation Date: 03/16/20 10:45 Actual Procedures p Total Knee Arthroplasty(Right) - Judi Wagner MD Surgical History (Last Updated 03/09/20 @ 13:02 by Ivory Baker RN) H/O total hysterectomy with bilateral salpingo-oophorectomy (BSO) (Acute) History of arthroplasty of left knee (Acute 12/02/19) History of bladder surgery (Acute) History of lumpectomy of right breast (Acute) History of surgery (Acute ~2016) Hx of appendectomy (Acute ~1978) Hx of bariatric surgery (Acute ~2009) Hx of excision of dermoid cyst (Acute) Hx of lithotripsy (Acute) Medical History (Last Updated 03/16/20 @ 09:08 by Gerber Lancaster) Arthritis (Acute) Cholesteatoma (Acute) Decreased sensation (Acute) Depression (Acute) DJD (degenerative joint disease) (Acute) 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 No deficits noted. Able to make needs known. Mobility and Gait Modified IND with SPC on uneven terrain. IND without AD at home. Able to finish grocery shopping with a cart without having to take a break . Activities of Daily Living and IADL's IND with all ADLs and IADLs including driving at baseline. Prior Functional Level (Other details) Denies hx of fall. Social History Household Members spouse Living Arrangements House Number of Floors (Floors) 3 or More Floors Number of Stairs To Enter/Railing? 1 CHAN with no railing but post on the R side. Inside the house, there are 3 steps with L railing ascending + landing + 19 steps with L railing ascending. Stairs are curved. Home Environment High Toilet,Walk in Shower,Tub /Shower Doors,Built-In Shower Seat Home Equipment Front Wheel Walker,Four Wheel Walker,Straight Cane,Hand Held Shower,Photography Colorist,Grab Bars In Shower Employment Status Retired Additional Social History Comment Pt lives with spouse, Ed, who will be available to assist at home. Pt is retired from [employer]. M2 PT-IP Current Condition Start: 03/16/20 15:14 Freq: NEEDED Status: Active Protocol: Document 03/17/20 11:40 DE (Rec: 03/17/20 12:18 DE [id number]) Physical Therapy Current Condition Current Condition Evaluation Date 03/17/20 Treatment Diagnosis R TKA; Difficulty with walking Onset Date 03/16/20 Weight Bearing Status Weight Bearing Status Weight Bear as Tolerated M3 PT-IP Subjective Start: 03/16/20 15:14 Freq: NEEDED Status: Active Protocol: Document 03/17/20 11:40 DE (Rec: 03/17/20 12:18 DE [id number]) Subjective Physical Therapy Visit Type Type Initial Evaluation Visit Start Time 10:16 Visit Stop Time 10:46 Total Visit Minutes 30 Notes SPT Kamlesh led the session under direct supervision of PT Rodrick throughout the entire session. Number of SENIOR TECHNICAL BUSINESS ANALYST Visits 0 Physical Therapy Visit Comments Patient Comments Pt is agreeable to do PT. Patient Goals To return home. Therapy Pain Assessment Pain When Pain Assessed During Weight Bearing Pain Present Pain Present Pain Reported Location Right Knee Intensity 7 Scale Used Numeric (0 - 10) Description Aching Pain Behaviors Calling Out Pain Management Techniques Timing of Activity with Medications M4 PT-IP Mobility and Gait Start: 03/16/20 15:14 Freq: NEEDED Status: Active Protocol: Document 03/17/20 11:40 DE (Rec: 03/17/20 12:18 DE [id number]) PT-Bed Mobility Assessment Supine to Sit Supine to Sit Contact Guard Assistance Scooting Scooting to Edge of Bed Contact Guard Assistance PT-Transfer Assessment Sit to and From Stand Sit to and from Stand Contact Guard Assistance,Use of Upper Extremities Equipment Transfer Assistive Device Gait Belt,Front Wheeled Walker Orthotic/Prosthetic Devices or Brace: No Transfers Transfer Destination Chair Transfer Technique Stand Step Pivot Transfer Ability Level of Assist Contact Guard Assistance,Use of Upper Extremities Comments Mobility Comments Pt was lying in bed as PT and SPT arrived. Pt completed supine to sit at L EOB with CGA and use of BUE to push off the bed. At EOB, BP was 126/ 64. Pt performed sit to stand with CGA and FWW in staggered stance with more WB through her LLE. Pt needed to use significant amount of momentum to stand up. Pt then amb ~200 ft total out to the hallway and back to her room. Pt demonstrated step-to pattern initially, but was able to progress to step-through pattern. Pt also demonstrated decreased stride length, decreased WB on the RLE, and decreased R knee extension during amb. Her R knee pain increased as amb distance increased. Her gait deviations were more pronounced towards the end of the amb d/t increased pain. Pt demonstrated labored breathing and fatigue after walking ~ 100 ft but was able to finish amb without taking a rest break. Pt also performed stair climbing up and down 3 steps x2 with L railing ascending. The first time, pt performed with CGA. The second time, pt performed with min 1P R PHOTONICS TECHNICIAN ascending and L PHOTONICS TECHNICIAN descending . Pt amb back to her room and sat down on the chair. Call light placed within reach. Gait Assessment Gait Gait Assistance Required: Contact Guard Assist Distance (Feet) 200 Able to Maintain Weight Bearing Status Yes During Gait Assistive Devices Assistive Device Gait Belt,Front Wheeled Walker Orthotic/Prosthetic Devices or Brace: No Gait Deviations General Gait Pattern Antalgic,Decreased Stride Length,Step-to Gait Factors Limiting Gait Function Factors Limiting Gait Function Decreased Activity Tolerance, Decreased Sensation,Decreased Strength,Limited Range of Motion,Pain,Poor Balance, Respiratory Distress Comments Gait Comments See mobility comments. Stair Climbing Assessment Evaluation Level of Assist On Stairs Contact Guard Assistance, Minimal Assistance,1 Person Assistance Devices Stair Climbing Assistive Devices Left Railing Technique/Endurance Stair Climbing Direction Ascend and Descend Stair Climbing Technique Step to Step Number of Steps Climbed 3 Query Text: Stair Climbing Set # Repetitions (reps) 2 Comments Stair Climbing Comments See mobility comments. PT-Balance Assessment Sitting Balance and Reactions Static Sitting Balance Ability Normal Dynamic Sitting Balance Ability Normal Standing Balance and Reactions Static Standing Balance Ability Good Dynamic Standing Balance Ability Good M5 PT-IP Objective Assessments Start: 03/16/20 15:14 Freq: NEEDED Status: Active Protocol: Document 03/17/20 11:40 DE (Rec: 03/17/20 12:18 DE [id number]) Orientation Orientation/Cognition Level of Alertness Alert Orientation Name,Age,Birthday,Month,Date, Year,Day of Week,Place, Situation Language Function Ability No Deficits Noted Safety Awareness Understands Safety Issues Memory Description No Deficits Noted Gross Range of Motion Lower Extremity ROM Assessment Right Impaired Strength Lower Extremity Strength Assessment Right Impaired Coordination Assessment Gross Coordination Gross Coordination WNL Sensation Assessment Sensation Gross Sensation Left LE Impaired Light Touch Impaired Comments Sensation Comments Pt had some numbness around her L knee from her L TKA in november 2019. Pt reports the numbness has been improving. Muscle Tone Muscle Tone WNL Yes M6 PT-IP Treatment Start: 03/16/20 15:14 Freq: NEEDED Status: Active Protocol: Document 03/17/20 11:40 DE (Rec: 03/17/20 12:18 DE [id number]) Physical Therapy Treatment Exercises Exercises Ankle Pumps,Gluteal Sets,Quad Sets,Heel Slides Education Education Provided Precautions,Post-Op Packet, Safety M7 PT-IP Assessment and Plan Start: 03/16/20 15:14 Freq: NEEDED Status: Active Protocol: Document 03/17/20 11:40 DE (Rec: 03/17/20 12:18 DE [id number]) PT Summary Assessment and Plan Potential Rehabilitation Potential Excellent Status of Condition at Evaluation Stable Summary Impairments Pain,ROM,Strength,Balance, Sensation,Bed Mobility, Transfers,Gait,Activity Tolerance Progress Towards Goals Safe For Discharge Assessment Summary This is a low complexity evaluation for 69 yo female, Trista, s/p R TKA POD1. PLOF= modified IND with SPC for community amb and IND for home amb. IND for all ADLs and IADLs including driving. CLOF= CGA and FWW for all mobility and amb. Pt was able to do stairs with CGA but was more stable with min 1P PHOTONICS TECHNICIAN. Pt has decreased activity tolerance as she had labored breathing and fatigue after amb ~100 ft. Pt is safe to d/c home with FWW and assistance from spouse . Pt will benefit from outpatient PT to improve her R knee ROM and strength as well as overall activity tolerance and balance. Frequency of Treatment Frequency Of Treatment Discharge Recommendations To Nursing Amount of Assist Needed 1 Person Assist Discharge Recommendations PT Discharge Recommendations Home with Assistance, Outpatient PT Transportation Needs at Discharge Private Vehicle This note is written by LYUDMILA Gibson. It has been reviewed and approved by Ivan Jimenez, PT
--- NOTE | 2020-03-17 13:43 | PC.NURSE ---
Discharge instructions and home care handout reviewed with patient and her , they state understanding and have no further questions or concerns at this time. IV dc'd intact. BRISA dressing intact. Patient instructed to call surgeons office with questions or concerns, or to seek care for emergency. Patient has follow up appointment scheduled. Patient escorted out via wheelchair with her and all belongings.
--- NOTE | 2020-03-17 14:11 | CM.DANOTE ---
Patient is a 69 year old female who was admitted on 03/16/20 for RTKA. Pt has [employer] AD[employer] for insurance and her PCP is Dr. Lissy Bay. EMR was reviewed. Per Ortho MD, pt tolerated procedure well and pain is controlled and stable for d/c home today pending PT eval and recommendations. Per PT, pt was able to ambulate and completed some CG training and recommending home with spouse assist and outpt PT. Pt left floor for d/c home right after PT eval and due to triage needs SW unable to complete bedside assessment but no identified barriers to discharge and per RN pt was taken to spouse POV with no needs identified or concerns. Plan: Patient discharged home today via spouse POV and outpt PT set up. No SW needs at this time. RAMÍREZ Navarro
== END 2020-03-17 13:46 | disposition home or self-care (01) ==
LOC: OR 08:46 → AC 10:17
PROVIDERS: PCP Social Worker Clinical; Referring Provider Orthopaedic Surgery; Visit Provider Orthopaedic Surgery
PROC: 0SRC0JZ Replacement of Right Knee Joint with Synthetic Substitute, Open Approach (ICD-10-PCS; CPT 27447; principal; 2020-03-16 10:45)
DX: M17.11 Unilateral primary osteoarthritis, right knee (principal); I10 Essential (primary) hypertension; F32.9 Major depressive disorder, single episode, unspecified; E78.5 Hyperlipidemia, unspecified; G47.33 Obstructive sleep apnea (adult) (pediatric); E11.9 Type 2 diabetes mellitus without complications
CPT/HCPCS: 27447; 36415; 73560; 85014; 85018; 97116; 97161; C1776; C9290; J1100; J2274; J2405; J3010